=== PATIENT | female | born 1995 | race Caucasian/White ===

== ENCOUNTER 2021-10-11 13:19 | Outpatient (CLI) | payer OTHER, SELFPAY ==
--- NOTE | ~2021-10-11 | US_ITS ---
EXAMINATION: US OB transvaginal DATE: 10/11/2021 13:49 INDICATION: Spotting. Cramping. TECHNIQUE: Real-time transabdominal and transvaginal obstetric ultrasound. FINDINGS: No prior studies for comparison. The uterus measures 8.6 x 5.4 x 6 cm. There is an intrauterine gestational sac with a yolk sac. No de finite pole is or heart motions detected. Gestational sac measures 1.73 cm corresponding to 6 week 0 day gestation. No subchorionic hemorrhage. Ovaries are not visualized. No adnexal masses or fluid collections. IMPRESSION: 1. Intrauterine gestational sac with yolk sac. No pole identified, likely due to early gestatio nal age. Gestational sac size corresponds to 6 week 0 day gestation, SONIA 06/06/2022. Common follow-up with serial quantitative beta-hCG level and ultrasound as clinically indicated. Reviewed, dictated and finalized at location A. TAL MARKETING ANALYST IMPRESSION: 1. Intrauterine gestational sac with yolk sac. No pole identified, likely due to early gestational age. Gestational sac size corresponds to 6 week 0 day gestation, SONIA 06/06/2022. Common follow-up with serial quantitative beta-hCG level and ultrasound as clinically indicated.
== END 2021-10-11 13:20 ==
PROVIDERS: Visit Provider Obstetrics & Gynecology Gynecology
DX: O26.851 Spotting complicating pregnancy, first trimester (principal); Z3A.01 Less than 8 weeks gestation of pregnancy
CPT/HCPCS: 76817

== ENCOUNTER 2022-07-24 14:39 | Outpatient (CLI) | payer OTHER, SELFPAY ==
--- NOTE | ~2022-07-24 | US_ITS ---
Pelvic ultrasound. Clinical History: First trimester , evaluate for dates Technique: Realtime transabdominal scanning of the pelvis was performed. Findings: The uterus is anteverted, and contains an intrauterine gestation. Haskell-rump length of 1.8 cm corresponds to an estimated gestational age of 8 weeks 2 days. heart rate is 168 bpm. Neither ovary is seen. No adnexal mass seen. There is no evidence of free fluid in the cul de sac. Impression: Live intrauterine gestation with estimated gestational age of 8 weeks 2 days. heart rate is 168 bpm. Reviewed, dictated and finalized at location . [employer] CRM DEVELOPER Impression: Live intrauterine gestation with estimated gestational age of 8 weeks 2 days. F etal heart rate is 168 bpm.
== END 2022-07-24 14:40 ==
LOC: MICIMG 14:41
PROVIDERS: PCP Family Medicine; Visit Provider Obstetrics & Gynecology Gynecology
DX: Z36.87 Encounter for antenatal screening for uncertain dates (principal); Z3A.08 8 weeks gestation of pregnancy
CPT/HCPCS: 76801

== ENCOUNTER 2022-12-20 07:29 | Outpatient (CLI) | payer OTHER, SELFPAY ==
[2022-12-20 08:47] LABS: Hematocrit 31.1 % (35.0-49.0); Hemoglobin 10.2 g/dL (12.0-15.0)
[2022-12-20 09:38] LABS: HIV 1 P24 AG Negative (Negative); HIV 1/2 AB Negative (Negative)
[2022-12-20 09:48] LABS: Free T4 Free Thyroxine 0.75 ng/dL (0.76-1.46); Thyroid Stimulating Hormone 1.31 uIU/mL (0.36-3.74)
[2022-12-20 09:53] LABS: Glucose 1 Hour PP 50gm Dose 154 mg/dL (70-130)
[2022-12-25 17:31] LABS: Vitamin D 25 Hydroxy 26 ng/mL (30-100)
== END 2022-12-20 07:30 | disposition home or self-care (01) ==
PROVIDERS: PCP Family Medicine; Visit Provider Obstetrics & Gynecology Gynecology
DX: Z34.93 Encounter for supervision of normal pregnancy, unspecified, third trimester (principal)
CPT/HCPCS: 36415; 82306; 82947; 84439; 84443; 85014; 85018; 86703

== ENCOUNTER 2022-12-27 09:02 | Outpatient (CLI) | payer OTHER, SELFPAY ==
[2022-12-27 09:50] LABS: Glucose Fasting 87 mg/dL (70-99)
[2022-12-27 10:47] LABS: Glucose 1 Hour 145 mg/dL (<180)
[2022-12-27 11:25] LABS: Glucose 2 Hour 144 mg/dL (<155)
[2022-12-27 12:25] LABS: Glucose 3 Hour 94 mg/dL (<140)
[2022-12-31 10:49] LABS: Glucose Fasting Gestational 87 mg/dL (>/=95)
[2022-12-31 10:50] LABS: Glucose 1 Hour Gest 145 mg/dL (70-130)
[2022-12-31 10:50] LABS: Glucose 2 Hour Gest 144 mg/dL (<155)
[2022-12-31 10:52] LABS: Glucose 3 Hour Gest 94 mg/dL (>/=140)
== END 2022-12-27 09:03 | disposition home or self-care (01) ==
PROVIDERS: PCP Family Medicine; Visit Provider Obstetrics & Gynecology Gynecology
DX: Z34.93 Encounter for supervision of normal pregnancy, unspecified, third trimester (principal)
CPT/HCPCS: 36415; 82951; 82952

== ENCOUNTER 2023-01-18 16:41 | Observation (INO) | payer OTHER, SELFPAY ==
[2023-01-18] VITALS (9 sets, daily range): BP systolic 118–141; BP diastolic 72–94; PULSE 97–107; RESP 16; TEMP 36.8; BMI 36.3
--- NOTE | 2023-01-18 17:08 | PC.NURSE ---
Dr. Avilez returned page and informed of pt's arrival after falling this morning around 1100. informed pt was carrying a load of laundry down her stairs when the dog came up behind her and she fell on her back side and slide down about a half flight of steps. Baby is active with accels present. Informed pt does have some left sided abdominal soreness with palpation and c/o constant left lower back soreness that she rates as a 7 out of 10. No redness or bruising on back. Pt tried showering for discomfort, but has not taken any Tylenol. Denies vaginal bleeding. States she has had several instances of watery discharge since Thursday. Also continues to have an occasional lower abdominal pressure discomfort that she has had for the last 2 weeks that she rates as a 5 out of 10 when it happens. Initial BP's are 133/85 and 141/94. Pt c/o temporal headache she rates as a 3 out of 10, denies visual disturbance, no epigastric/RUQ pain. No edema and DTR's are 1+ and no clonus. Orders received for Tylenol, ice pack, perform ROM plus, and if BP's stay elevated perform HIP labs.
[2023-01-18] MEDS: ACETAMINOPHEN 500 MG TABLET 1000 MG PO (17:25)
--- NOTE | 2023-01-18 18:21 | OBADM ---
This patient, Suma Moreno, admitted to the OB room OB Post 116 for observation. Patient/family oriented to hospital policies and general routines including ID bracelet, bed and alarms, visiting hours, pain management, procedures, bathroom and other care routines, personal items, smoking policy, room service/diet, and visiting hours. Patient/Family are encouraged to report perceived risks to care and to ask questions if they do not understand what they are told or what they should do.
--- NOTE | 2023-01-23 12:43 | PM.OBTRLD ---
OB - Triage/Final Diagnosis Visit Information Reason for evaluation: other ( Status post fall down stairs) Comments/Additional reasons for admission: I have assessed the risk for this patient, Suma Moreno, and determined that she would benefit from observation care.
== END 2023-01-18 19:11 | disposition home or self-care (01) ==
PROVIDERS: Admitting Provider Obstetrics & Gynecology Gynecology; PCP Family Medicine; Visit Provider Obstetrics & Gynecology Gynecology
DX: Z04.3 Encounter for examination and observation following other accident (principal)
CPT/HCPCS: A9270; G0378; G0379

== ENCOUNTER 2023-01-28 18:36 | Observation (INO) | payer OTHER, SELFPAY ==
[2023-01-28] VITALS (40 sets, daily range): BP systolic 109–138; BP diastolic 68–109; PULSE 92–121; TEMP 36.6; O2SAT 96–100; BMI 35.9
[2023-01-28] MEDS: BETAMETHASONE SOD PHOS/ACETATE 30 MG/5 ML VIAL 12 MG IM (20:47)
[2023-01-28] MEDS: ACETAMINOPHEN 500 MG TABLET 1000 MG PO (20:48)
[2023-01-28] MEDS: fentaNYL CITRATE INJ (*CRX) 100 MCG/2 ML VIAL 50 MCG IV PUSH (21:53)
[2023-01-28 21:54] LABS: Appearance Urine Clear (Clear); Bacteria Urine None Seen /hpf; Bilirubin Urine Negative (Negative); Blood Urine Negative (Negative); Color Urine Yellow (Yellow); Glucose Urine UA Negative (Negative); Hyaline Casts Urine Present /lpf; Ketones Urine Negative (Negative); Leukocyte Esterase Ur 2+ LEU/UL (Negative); Nitrate Urine Negative (Negative); Protein Urine Negative (Negative); RBC Urine 0-2 /hpf (0-2); Specific Grav Ur 1.004 (1.001-1.035); Squamous Epithelial Cell Urine Few /hpf (Few); Urobilinogen Urine 0.2 mg/dL (<2.0); WBC Urine 0-5 /hpf
[2023-01-28 21:55] LABS: Add Urine Microscopic? YES
[2023-01-28 23:10] LABS: Basophils Absolute Auto 0.1 K/mm3 (0.0-0.1); Basophils Percent Auto 0.4 % (0.2-1.2); Eosinophils Absolute Auto 0.1 K/mm3 (0-0.3); Hemoglobin 10.1 g/dL (12.0-15.0); Immature Granulocyte Percent A 0.9 % (0-0.5); Lymphocytes Absolute Auto 1.82 K/mm3 (0.9-3.2); Lymphocytes Percent Auto 15.5 % (18.3-44.2); Mean Corpuscular HGB Conc 32.6 g/dl (32-36); Mean Corpuscular Hemoglobin 27.9 pg (26-34); Mean Corpuscular Volume 85.6 fl (80-100); Mean Platelet Volume 10.6 fl (7.4-10.4); Monocytes Absolute Auto 0.8 K/mm3 (0.1-0.6); Neutrophils Absolute Auto 8.8 K/mm3 (1.3-6.7); Neutrophils Percent Auto 75.2 % (45.5-73.1); Platelet Count Result 213 k/mm3 (150-375); Red Blood Count 3.62 M/mm3 (4.2-5.4); Red Cell Distribution Width 14.4 % (11.5-14.5); White Blood Count 11.7 K/mm3 (4.5-10.0)
[2023-01-28 23:22] LABS: Alanine Aminotransferase 19 U/L (6-35); Albumin Level 3.5 g/dL (3.5-5.1); Alkaline Phosphatase 176 U/L (38-126); Anion Gap 7 mmol/L (8-16); Aspartate Amino Transferase 24 U/L (14-36); Bilirubin,Total 0.5 mg/dL (0.2-1.3); Blood Urea Nitrogen 5 mg/dL (7-17); Calcium 8.5 mg/dL (8.4-10.2); Carbon Dioxide 21 mmol/L (22-30); Chloride 106 mmol/L (98-107); Estimated CRCL calculation 185 ml/min; Estimated Glomerular Filt Rate > 60; Glucose 101 mg/dL (65-110); Potassium 3.2 mmol/L (3.4-5.0); Sodium 134 mmol/L (137-145)
--- NOTE | 2023-01-28 23:31 | PM.OBTRLD ---
OB - Triage/Final Diagnosis Visit Information Date of evaluation: 01/28/23 Reason for evaluation: threatened labor (pelvic pressure) Comments/Additional reasons for admission: I have assessed the risk for this patient, Suma Moreno, and determined that she would benefit from observation care. Evaluation Baseline heart rate: 140 Variability: Moderate (11-25) monitor accelerations: Present monitor decelerations: Variable Cervical dilation (cm): 4 station: -3 Laboratory results: Laboratory Tests 01/28/23 01/28/23 20:44 23:04 WBC 11.7 H RBC 3.62 L Hgb 10.1 L Hct 31.0 L MCV 85.6 MCH 27.9 MCHC 32.6 RDW 14.4 Plt Count 213 MPV 10.6 H Immature Gran % (Auto) 0.9 H Neut % (Auto) 75.2 H Lymph % (Auto) 15.5 L [place] % (Auto) 7.0 Eos % (Auto) 1.0 Baso % (Auto) 0.4 Lymph # (Auto) 1.82 [place] # (Auto) 0.8 H Eos # (Auto) 0.1 Baso # (Auto) 0.1 Abs Immat Gran (auto) 0.10 H Absolute Neuts (auto) 8.8 H Absolute Nucleated RBC 0.0 Nucleated RBC % 0.0 Sodium 134 L Potassium 3.2 L Chloride 106 Carbon Dioxide 21 L Anion Gap 7 L BUN 5 L Creatinine 0.40 L Estim Creat Clear Calc 185 Estimated GFR > 60 Glucose 101 Calcium 8.5 Total Bilirubin 0.5 AST 24 ALT 19 Alkaline Phosphatase 176 H Total Protein 7.0 Albumin 3.5 Urine Color Yellow Urine Appearance Clear Urine pH 7.0 Ur Specific [place] 1.004 Urine Protein Negative Urine Glucose (UA) Negative Urine Ketones Negative Ur Blood (Man) Negative Urine Nitrate Negative Urine Bilirubin Negative Urine Urobilinogen 0.2 Leukocyte Esterase Rfl 2+ H Urine RBC 0-2 Urine WBC 0-5 Ur Squamous Epith Cells Few Urine Bacteria None seen Urine Casts 3-5 Hyaline Casts Present Vital signs: Vital Signs - 24 hr 01/28/23 19:34 01/28/23 19:39 01/28/23 19:44 Temperature Pulse Rate Blood Pressure Pulse Oximetry 96 97 97 01/28/23 19:49 01/28/23 19:54 01/28/23 19:59 Temperature Pulse Rate Blood Pressure Pulse Oximetry 100 96 97 01/28/23 20:04 01/28/23 20:09 01/28/23 20:14 Temperature Pulse Rate Blood Pressure Pulse Oximetry 100 99 100 01/28/23 20:19 01/28/23 20:24 01/28/23 20:29 Temperature Pulse Rate Blood Pressure Pulse Oximetry 99 98 99 01/28/23 20:53 01/28/23 21:01 01/28/23 21:31 Temperature Pulse Rate 114 H 113 H 109 H Blood Pressure 122/68 120/70 123/109 H Pulse Oximetry 01/28/23 21:54 01/28/23 21:57 01/28/23 21:58 Temperature Pulse Rate 114 H Blood Pressure 134/93 H Pulse Oximetry 99 98 01/28/23 21:59 01/28/23 22:00 01/28/23 22:00 Temperature Pulse Rate Blood Pressure Pulse Oximetry 98 98 100 01/28/23 22:01 01/28/23 22:08 01/28/23 22:13 Temperature Pulse Rate 112 H Blood Pressure 138/98 H Pulse Oximetry 99 99 01/28/23 22:18 01/28/23 22:23 01/28/23 22:28 Temperature Pulse Rate Blood Pressure Pulse Oximetry 99 99 100 01/28/23 22:31 01/28/23 22:33 01/28/23 22:38 Temperature Pulse Rate 105 H Blood Pressure 119/77 Pulse Oximetry 98 96 01/28/23 22:43 01/28/23 22:48 01/28/23 22:53 Temperature Pulse Rate Blood Pressure Pulse Oximetry 100 100 96 01/28/23 22:58 01/28/23 23:01 01/28/23 23:03 Temperature Pulse Rate 96 Blood Pressure 109/87 Pulse Oximetry 99 99 01/28/23 23:08 01/28/23 23:13 01/28/23 23:18 Temperature Pulse Rate Blood Pressure Pulse Oximetry 99 99 96 01/28/23 19:40 Temperature 97.9 F Pulse Rate Blood Pressure Pulse Oximetry Comments: S:CNM called to evaluate pt. Pt s/p fall over the weekend. Reactive NST in the office afterwards. She presented to labor and delivery this evening with increased pressure. leaking fluid, and occasional contractions. After admission, she c/o sharp, constant lower abdominal/vaginal pain. CNM to bedsid
[2023-01-28] MEDS: POTASSIUM CHLORIDE 20 MEQ PACKET (FOR LIQUID) 40 MEQ PO (23:56)
[2023-01-29 00:42] VITALS: PULSE 95; O2SAT 97
[2023-01-29 00:50] LABS: Influenza A QL RT-PCR Negative (Negative); Influenza B QL RT-PCR Negative (Negative); RSV RNA, RT-PCR Negative (Negative); SARS-CoV-2 RNA PCR Negative (Negative)
[2023-01-29] MEDS: CYCLOBENZAPRINE HCL 10 MG TABLET PO (00:54)
== END 2023-01-29 01:00 | disposition home or self-care (01) ==
PROVIDERS: Admitting Provider Obstetrics & Gynecology Gynecology; PCP Family Medicine; Visit Provider Advanced Practice Midwife
DX: O47.03 False labor before 37 completed weeks of gestation, third trimester (principal); O98.813 Other maternal infectious and parasitic diseases complicating pregnancy, third trimester; B95.1 Streptococcus, group B, as the cause of diseases classified elsewhere; O99.283 Endocrine, nutritional and metabolic diseases complicating pregnancy, third trimester; E87.6 Hypokalemia; O99.513 Diseases of the respiratory system complicating pregnancy, third trimester; R05.9 Cough, unspecified; Z3A.35 35 weeks gestation of pregnancy
CPT/HCPCS: 36415; 59025; 80053; 81001; 84112; 85025; 87081; 87637; 96372; 96374; A9270; G0378; G0379; J0702; J3010

== ENCOUNTER 2023-01-29 12:41 | Outpatient (CLI) | payer OTHER, SELFPAY ==
[2023-01-29] MEDS: BETAMETHASONE SOD PHOS/ACETATE 30 MG/5 ML VIAL 12 MG IM (13:02)
== END 2023-01-29 12:42 | disposition home or self-care (01) ==
LOC: ANHOBOP 12:54
PROVIDERS: PCP Family Medicine; Visit Provider Obstetrics & Gynecology Gynecology
DX: Z34.90 Encounter for supervision of normal pregnancy, unspecified, unspecified trimester (principal); Z3A.00 Weeks of gestation of pregnancy not specified
CPT/HCPCS: 96372; J0702

== ENCOUNTER 2023-01-30 14:28 | Outpatient (RCR) | payer OTHER, SELFPAY ==
[2023-01-23 18:23] VITALS: BP 154/77; PULSE 111
[2023-01-23 18:31] VITALS: BP 129/76; PULSE 104
[2023-01-23 18:44] VITALS: BP 129/76; PULSE 104
[2023-01-27 20:24] VITALS: BP 138/82; PULSE 104
[2023-01-30 15:48] VITALS: BP 134/77; PULSE 110
== END 2023-03-23 12:44 | disposition home or self-care (01) ==
LOC: ANHOBOP 14:28
PROVIDERS: PCP Family Medicine; Visit Provider Obstetrics & Gynecology Gynecology
DX: O36.8130 Decreased fetal movements, third trimester, not applicable or unspecified (principal); Z3A.34 34 weeks gestation of pregnancy
CPT/HCPCS: 59025

== ENCOUNTER 2023-02-01 19:53 | Observation (INO) | payer OTHER, SELFPAY ==
[2023-02-01] VITALS (8 sets, daily range): BP systolic 130–145; BP diastolic 78–123; PULSE 90–109; RESP 16; TEMP 37; BMI 35.5
--- NOTE | 2023-02-01 19:53 | OBADM ---
This patient, Suma Moreno, admitted to the OB room Labor/Delivery/Recovery 103 for observation. Patient/family oriented to hospital policies and general routines including ID bracelet, bed and alarms, visiting hours, pain management, procedures, bathroom and other care routines, personal items, smoking policy, room service/diet, and visiting hours. Patient/Family are encouraged to report perceived risks to care and to ask questions if they do not understand what they are told or what they should do.
--- NOTE | 2023-02-01 22:40 | PC.NURSE ---
Discharge instructions reviewed with patient, labor precautions reviewed with patient. Patient instructed to use support belt for comfort. Patient instructed to follow-up with Dr. Avilez as scheduled. Patient instructed to do kick counts and educated on how to properly do them. Patient states understanding of discharge instructions and denies questions.
--- NOTE | 2023-02-09 09:55 | PM.OBTRLD ---
OB - Triage/Final Diagnosis Visit Information Reason for evaluation: other ( pelvic pressure) Comments/Additional reasons for admission: I have assessed the risk for this patient, Suma Moreno, and determined that she would benefit from observation care.
--- NOTE | 2023-02-09 10:24 | PM.OBPNVD ---
OB - PN: Subj Subjective Date/time seen: 02/09/23 10:24 Interval history: Called by RN as patient stating she cannot stay for antibiotics due to no childcare. Discussed that she would need to sign out AMA as she has a life threatening illness. Discussed risks of worsening infection including sepsis and if patient leaves without standard medication treatment. OB - PN A/P Assessment and Plan (1) Endometritis: Code(s): N71.9 - Inflammatory disease of uterus, unspecified Status: Acute Assessment and Plan: Care coordination called to see if can set up outpatient antibiotics. Will call back once investigates. Plan Plan day: 4 Time Spent With Patient Time: Total time spent is greater than 50% in coordination of care (as documented) at patient's floor/unit and/or counseling patient:
== END 2023-02-01 22:40 | disposition home or self-care (01) ==
PROVIDERS: Admitting Provider Obstetrics & Gynecology; PCP Family Medicine; Visit Provider Obstetrics & Gynecology Gynecology
DX: O86.12 Endometritis following delivery (principal); Z53.21 Procedure and treatment not carried out due to patient leaving prior to being seen by health care provider
CPT/HCPCS: G0378; G0379

== ENCOUNTER 2023-02-03 13:50 | Inpatient (IN) | payer OTHER, SELFPAY ==
[2023-02-03] VITALS (18 sets, daily range): BP systolic 111–137; BP diastolic 74–95; PULSE 88–107; RESP 16; TEMP 36.6; O2SAT 97–99; BMI 36.5
--- NOTE | ~2023-02-03 | US_ITS ---
EXAMINATION: US OB follow up DATE: 02/03/2023 13:21 INDICATION: Estimated weight and growth assessment during third trimester TECHNIQUE: Real-time ultrasound of the pelvis was performed. The interpreting radiologist was not pre sent for the study. COMPARISON: None. FINDINGS: There is a single living fetus in vertex presentation. The placenta is fundal. cardia c activity and movement are noted. heart rate is 157 beats per minute (bpm). The amniotic fluid index is 12.2 cm which is normal (normal range: 7.7 cm to 24.9 cm). The following biometric data were obtained: Biparietal diameter (BPD): 9.6 cm; head circumference (HC): 32.9 cm; abdominal circumference (AC): 35 .0 cm; femur length (FL): 7.4 cm. These measurements are concordant. Estimated weight is 3557 g +/- 533 g, which correlates with the >97th percentile when 03/03/2023 is used as estimated date of delivery. As single measurements, these parameters are each equal to the following estimated gestational ages w ith ranges of +/- 2 standard deviations: BPD: 39 weeks 2 days +/- 3 weeks 1 days. HC: 37 weeks 4 days +/- 2 weeks 5 days. AC: 39 weeks 0 days +/- 3 weeks 0 days. FL: 38 weeks 0 days +/- 3 weeks 1 days. estimated gestational age based solely on measurements from this exam is 38 weeks 3 days +/- 2 weeks 5 days. IMPRESSION: 1. Single living fetus in vertex presentation. 2. Normal amniotic fluid index. 3. Estimated weight is 3557 g +/- 533 g, which correlates with the >97th percentile when 023 is used as estimated date of delivery. Reviewed, dictated and finalized at location L. IMPRESSION: 1. Single living fetus in vertex presentation. 2. Normal amniotic fluid index. 3. Estimated weight is 3557 g +/- 533 g, which correlates with the >97th percentile when 03/03/2023 is used as estimated date of delivery.
[2023-02-03 10:57] LABS: Basophils Absolute Auto 0.1 K/mm3 (0.0-0.1); Basophils Percent Auto 0.4 % (0.2-1.2); Eosinophils Absolute Auto 0.2 K/mm3 (0-0.3); Eosinophils Percent Auto 1.2 % (0-4.4); Hematocrit 32.4 % (37.0-47.0); Hemoglobin 10.4 g/dL (12.0-15.0); Immature Granulocyte Absolute 0.22 K/mm3 (0.00-0.031); Immature Granulocyte Percent A 1.6 % (0-0.5); Lymphocytes Absolute Auto 2.57 K/mm3 (0.9-3.2); Lymphocytes Percent Auto 18.2 % (18.3-44.2); Mean Corpuscular HGB Conc 32.1 g/dl (32-36); Mean Corpuscular Hemoglobin 27.1 pg (26-34); Mean Corpuscular Volume 84.4 fl (80-100); Monocytes Absolute Auto 0.9 K/mm3 (0.1-0.6); Monocytes Percent Auto 6.7 % (2.6-8.5); Neutrophils Absolute Auto 10.1 K/mm3 (1.3-6.7); Neutrophils Percent Auto 71.9 % (45.5-73.1); Platelet Count Result 245 k/mm3 (150-375); Red Blood Count 3.84 M/mm3 (4.2-5.4); Red Cell Distribution Width 14.3 % (11.5-14.5); White Blood Count 14.1 K/mm3 (4.5-10.0)
[2023-02-03] MEDS: ACETAMINOPHEN 500 MG TABLET 1000 MG PO (11:07)
[2023-02-03 11:13] LABS: Alanine Aminotransferase 18 U/L (6-35); Albumin Level 3.4 g/dL (3.5-5.1); Alkaline Phosphatase 184 U/L (38-126); Anion Gap 5 mmol/L (8-16); Aspartate Amino Transferase 19 U/L (14-36); Bilirubin,Total 0.3 mg/dL (0.2-1.3); Blood Urea Nitrogen 7 mg/dL (7-17); Calcium 8.3 mg/dL (8.4-10.2); Carbon Dioxide 24 mmol/L (22-30); Chloride 106 mmol/L (98-107); Estimated Glomerular Filt Rate > 60; Glucose 82 mg/dL (65-110); Potassium 3.6 mmol/L (3.4-5.0); Sodium 135 mmol/L (137-145)
--- NOTE | 2023-02-03 12:00 | PC.NURSE ---
No improvement in headache after Tylenol. Still has flashes/spots in vision also.
[2023-02-03 12:07] LABS: Appearance Urine Clear (Clear); Bacteria Urine None Seen /hpf; Bilirubin Urine Negative (Negative); Blood Urine Negative (Negative); Color Urine Yellow (Yellow); Glucose Urine UA Negative (Negative); Ketones Urine Negative (Negative); Leukocyte Esterase Ur 2+ LEU/UL (Negative); Nitrate Urine Negative (Negative); Non Pathogenic Casts 0-2; Protein Urine Negative (Negative); RBC Urine 0-2 /hpf (0-2); Specific Grav Ur 1.011 (1.001-1.035); Squamous Epithelial Cell Urine Few /hpf (Few); Urobilinogen Urine 0.2 mg/dL (<2.0); pH Urine 7.5 (5.0-9.0)
[2023-02-03 12:11] LABS: Add Urine Microscopic? YES
--- NOTE | 2023-02-03 12:55 | PC.NURSE ---
Pt voided and then to U/S.
[2023-02-03 13:34] LABS: Creatinine Urine 68.4 mg/dL; Total Protein Urine Random 15 mg/dL; Ur Ttl Prot Creatinine Ratio 0.22 mg/mg (0-0.20)
--- NOTE | 2023-02-03 13:40 | PC.NURSE ---
Román ISBELLM informed of BP's, labs, reactive NST, and U/S report. AKILAHM will call back after speaking with Dr. Avilez.
--- NOTE | 2023-02-03 13:50 | PC.NURSE ---
Román ISBELL called back with orders to place pt as observation to complete a 24 hr urine while in the hospital. Additional orders for stay received.
--- NOTE | 2023-02-03 14:30 | PC.NURSE ---
Román Larson [facility] informed pt refusing offer for Compazine and Benadryl. Order received to offer Magnesium Sulfate 1 gm IVPB over 30 mins for her headache as it is a natural element. To explain to pt that they want to differentiate if she has a headache with visual disturbance that doesn't go away with meds as part of the criteria for diagnosing preeclampsia and indication for delivery.
--- NOTE | 2023-02-03 14:40 | PC.NURSE ---
Explained the offer of Magnesium sulfate to pt and she still declines. 24 hr urine in progress and on ice.
--- NOTE | 2023-02-03 18:14 | PC.NURSE ---
Pt called out stating she was sitting on the side of the bed when she suddenly became nauseated and dizzy. States her headache worsened to a 6 out of 10 and is in her temples more. Blood sugar was normal. Ice pack given.
[2023-02-03 18:18] LABS: Glucose Point of Care 85 mg/dl (65-105)
[2023-02-04] VITALS (105 sets, daily range): BP systolic 72–147; BP diastolic 36–96; PULSE 75–161; RESP 16; TEMP 36.1–36.6; O2SAT 95–100; BMI 35.2
--- NOTE | 2023-02-04 06:22 | PM.OBPNVD ---
OB - PN: Subj Subjective Date/time seen: 02/04/23 06:22 Patient comments: other Narrative: CNM to bedside. Pt looking at her phone screen. Pt states her night was horrible . She can't get comfortable. States she is still having flashes of light in her vision but they are not as bad . Rates headache a 11/17. OB - PN: Obj Data Labs 02/03/23 10:48 02/03/23 10:48 Labs: Laboratory Results - last 24 hr 02/03/23 02/03/23 02/03/23 10:48 11:47 18:14 WBC 14.1 H RBC 3.84 L Hgb 10.4 L Hct 32.4 L MCV 84.4 MCH 27.1 MCHC 32.1 RDW 14.3 Plt Count 245 MPV 10.0 Immature Gran % (Auto) 1.6 H Neut % (Auto) 71.9 Lymph % (Auto) 18.2 L [place] % (Auto) 6.7 Eos % (Auto) 1.2 Baso % (Auto) 0.4 Lymph # (Auto) 2.57 [place] # (Auto) 0.9 H Eos # (Auto) 0.2 Baso # (Auto) 0.1 Abs Immat Gran (auto) 0.22 H Absolute Neuts (auto) 10.1 H Absolute Nucleated RBC 0.0 Nucleated RBC % 0.0 Sodium 135 L Potassium 3.6 Chloride 106 Carbon Dioxide 24 Anion Gap 5 L BUN 7 Creatinine 0.50 L Estim Creat Clear Calc Not Reportable Estimated GFR > 60 Glucose 82 POC Capillary Glucose 85 Uric Acid 4.0 Calcium 8.3 L Total Bilirubin 0.3 AST 19 ALT 18 Alkaline Phosphatase 184 H Total Protein 7.0 Albumin 3.4 L Urine Color Yellow Urine Appearance Clear Urine pH 7.5 Ur Specific [place] 1.011 Urine Protein Negative Urine Glucose (UA) Negative Urine Ketones Negative Ur Blood (Man) Negative Urine Nitrate Negative Urine Bilirubin Negative Urine Urobilinogen 0.2 Leukocyte Esterase Rfl 2+ H Urine RBC 0-2 Urine WBC 6-10 H Ur Squamous Epith Cells Few Urine Bacteria None seen Urine Casts 0-2 U Random Total Protein 15 Urine Creatinine 68.4 Protein/Creat Ratio 2 0.22 H Imaging Radiologist's impression: Impressions Obstetrics Ultrasound 02/03/23 13:29 IMPRESSION: 1. Single living fetus in vertex presentation. 2. Normal amniotic fluid index. 3. Estimated weight is 3557 g +/- 533 g, which correlates with the >97th percentile when 03/03/2023 is used as estimated date of delivery. OB - PN A/P Assessment and Plan (1) Headache: Code(s): R51.9 - Headache, unspecified Status: Acute (2) Visual disturbances: Code(s): H53.9 - Unspecified visual disturbance Status: Acute Plan 1. Elevated BP in office 02/03/23. - all BPs in hospital WNL. Labs WNL. Awaiting completion of 24 hour urine protein. No evidence of preeclampsia at this time. 2. Headache - refusing all PO medications. Discussed IV magnesium 1 gram- refuses. Somewhat consistent with her migraine history 3. wellbeing reassuring -nST reactive. -s/p [place] - no evidence of labor Time Spent With Patient Time: Total time spent is greater than 50% in coordination of care (as documented) at patient's floor/unit and/or counseling patient: Review of Systems Review of Systems: All systems reviewed & are unremarkable except as noted in HPI and below Exam Const: General: no acute distress Nutritional Appearance: average body habitus Orientation/consciousness: oriented to person Limitations: no limitations HENMT: Head: normal to inspection Eyes: General: appearance normal, both eyes and all related structures Chest: Chest palpation & inspection: normal inspection of the chest Resp: Effort & Inspection: normal respiratory effort and able to speak in complete sentences Cardio: Rate: regular rate GI: Inspection: normal to inspection Skin: General skin exam: normal color Neuro: General: patient oriented x3 Cognition (Neuro): normal cognition Speech: normal speech Extrem: General: normal to inspection Psych: Appearance: grossly normal Affect: Other affect and mood findings present (agitated)
--- NOTE | 2023-02-04 06:45 | LDADM ---
This patient, Suma Moreno, was admitted to OB Post 115 on 02/03/23 at 13:50. Plans for labor, pain management and were discussed with patient. Patient/family oriented to hospital policies and general routines including ID bracelet, bed and alarms, visiting hours, pain management, procedures, bathroom and other care routines, personal items, smoking policy, room service/diet and guest tray routines, infant security routines, and visiting hours. Patient/Family are encouraged to report perceived risks to care and to ask questions if they do not understand what they are told or what they should do. See OBIX for further documentation.
--- NOTE | 2023-02-04 09:09 | PC.NURSE ---
RN at bedside for vitals. Patient watching TV and talking with her visitor. Patient has no complaints at this time.
--- NOTE | 2023-02-04 13:05 | PC.NURSE ---
24 hour urine specimen sent to lab. Awaiting results to notify provider.
[2023-02-04 13:23] LABS: Collection Time Urine 24 HOURS
[2023-02-04 14:52] LABS: Patient Weight 209 Lbs; Specific Gravity Ur 1.015; Total Volume 24 Hour Urine 3200 ml
[2023-02-04 15:01] LABS: Creatinine Clearance Urine 179.3 ml/min (75-125); Creatinine Urine 45.8 mg/dL; Total Protein Urine Random 20 mg/dL
[2023-02-04 15:11] LABS: Total Protein Urine 24 Hr 640 mg/24hr (28-141)
--- NOTE | 2023-02-04 16:58 | PC.NURSE ---
Spoke with CNM on phone. Patient is to be induced per provider. CNM to call back with induction orders.
--- NOTE | 2023-02-04 18:05 | PM.OBPNLAB ---
Pain Control Date/time seen: 02/04/23 [id number] Comments: . Assessment and Plan Comments: CNM to unit. RNs report pt walking in halls trying to induce labor this afternoon. CNM to antepartum room. Discussed 24 hour urine results with pt and diagnosis of preeclmapsia with severe features. Pt reports ARREDONDO is still present and occasionally still having flashes of light. Discussed IOL procedure and possible interventions. Pt desires to attempt unmedicated . Discussed normal BP elevation in response to pain and potential benefit of epidural analgesia. Discussed IOL at 36 weeks 1 day and potential risk of baby requiring transfer to higher level of care. Plan to move pt to labor room, start IV and then perform SVE. Plan of care reviewed with Dr. Avilez.
[2023-02-04 18:11] LABS: Basophils Percent Auto 0.3 % (0.2-1.2); Eosinophils Absolute Auto 0.2 K/mm3 (0-0.3); Eosinophils Percent Auto 1.2 % (0-4.4); Hemoglobin 10.3 g/dL (12.0-15.0); Immature Granulocyte Absolute 0.22 K/mm3 (0.00-0.031); Immature Granulocyte Percent A 1.7 % (0-0.5); Lymphocytes Absolute Auto 2.63 K/mm3 (0.9-3.2); Lymphocytes Percent Auto 20.5 % (18.3-44.2); Mean Corpuscular HGB Conc 32.2 g/dl (32-36); Mean Corpuscular Hemoglobin 27.4 pg (26-34); Mean Corpuscular Volume 85.1 fl (80-100); Mean Platelet Volume 10.1 fl (7.4-10.4); Monocytes Absolute Auto 0.8 K/mm3 (0.1-0.6); Monocytes Percent Auto 6.5 % (2.6-8.5); Neutrophils Percent Auto 69.8 % (45.5-73.1); Platelet Count Result 247 k/mm3 (150-375); Red Blood Count 3.76 M/mm3 (4.2-5.4); Red Cell Distribution Width 14.3 % (11.5-14.5); White Blood Count 12.9 K/mm3 (4.5-10.0)
[2023-02-04 18:21] LABS: Alanine Aminotransferase 17 U/L (6-35); Albumin Level 3.5 g/dL (3.5-5.1); Alkaline Phosphatase 178 U/L (38-126); Anion Gap 6 mmol/L (8-16); Aspartate Amino Transferase 19 U/L (14-36); Bilirubin,Total 0.2 mg/dL (0.2-1.3); Blood Urea Nitrogen 8 mg/dL (7-17); Calcium 8.6 mg/dL (8.4-10.2); Carbon Dioxide 19 mmol/L (22-30); Chloride 110 mmol/L (98-107); Estimated CRCL calculation 188 ml/min; Estimated Glomerular Filt Rate > 60; Glucose 96 mg/dL (65-110); Potassium 3.8 mmol/L (3.4-5.0); Sodium 135 mmol/L (137-145)
--- NOTE | 2023-02-04 18:29 | PM.OBPNLAB ---
Pain Control Date/time seen: 02/04/23 18:25 Pelvic Exam Dilation (cm): 4 (4.5) Effacement (%): 50 station: -4 Amniotic membrane status: Intact Comments: head applied to cervix. Contractions Monitor mode: External Contraction pattern: Absent Contraction phase: Resting Status status: Category l Assessment and Plan Assessment: other (begin IOL) Comments: CNM to bedside. Discussed plan of care an option for amniotomy. Discussed risks, benefits, and expectations of breaking water. Attempted amniotomy but was unsuccessful. Limited bedside US performed to verify position. Vertex presentation verified with spine towards maternal right side. Plan pitocin induction. Dr. Avilez updated. Lungs CTA, Reflexes 2+, neg clonus.
[2023-02-04] MEDS: MAGNESIUM SULF 4 GM/WATER100ML 4 GM/100 ML BAG IVPB (18:41)
[2023-02-04] MEDS: LACTATED RINGERS 1,000 ML 75 ML IV CONT (18:41)
[2023-02-04] MEDS: OXYTOCIN 30 UNITS/NS 500 ML 30 UNITS/500 ML BAG IV CONT (18:43)
[2023-02-04] MEDS: MAGNESIUM SULF 20GM/WATER500ML 500 ML 50 MG IV CONT (19:17)
--- NOTE | 2023-02-04 21:59 | WPDANESEPP ---
Anes - Eval Pre Procedure Procedure: labor epidural Date/Time: 02/04/23 21:59 Surgeon: khanh Preop Diagnosis: pain during labor Pre Op Diagnosis: PRE E Labs Patient Data Age: 27 Gender: F Height: 1.6 m Weight: 90.1 kg Last Vital Signs Temp 36.2 C L 02/04/23 21:10 Pulse 121 H 02/04/23 21:46 Resp 16 02/04/23 19:17 BP 145/82 H 02/04/23 21:46 Pulse Ox 100 02/04/23 21:58 O2 Del Method Room Air 02/04/23 19:18 Allergies Allergy/AdvReac Type Severity Reaction Status Date / Time No Known Allergies Allergy Mild Verified 02/03/23 10:42 Home Medications Medication Instructions Recorded Confirmed Type ergocalciferol (vitamin D2) 1,250 50,000 unit PO 2XW 01/18/23 02/03/23 History mcg (50,000 unit) capsule ferrous sulfate 325 mg (65 mg 325 mg PO DAILY 01/18/23 02/03/23 History iron) tablet levothyroxine 25 mcg tablet 25 mcg PO DAILY 01/18/23 02/03/23 History vit no.95-ferrous 1 tablet PO DAILY 01/18/23 02/03/23 History fumarate 28 mg-folic acid 800 mcg tablet () Laboratory Tests 02/03/23 02/04/23 12:58 18:05 WBC 12.9 H K/mm3 (4.5-10.0) RBC 3.76 L M/mm3 (4.2-5.4) Hgb 10.3 L g/dL (12.0-15.0) Hct 32.0 L % (37.0-47.0) MCV 85.1 fl (80-100) MCH 27.4 pg (26-34) MCHC 32.2 g/dl (32-36) RDW 14.3 % (11.5-14.5) Plt Count 247 k/mm3 (150-375) MPV 10.1 fl (7.4-10.4) Immature Gran % (Auto) 1.7 H % (0-0.5) Neut % (Auto) 69.8 % (45.5-73.1) Lymph % (Auto) 20.5 % (18.3-44.2) [place] % (Auto) 6.5 % (2.6-8.5) Eos % (Auto) 1.2 % (0-4.4) Baso % (Auto) 0.3 % (0.2-1.2) Lymph # (Auto) 2.63 K/mm3 (0.9-3.2) [place] # (Auto) 0.8 H K/mm3 (0.1-0.6) Eos # (Auto) 0.2 K/mm3 (0-0.3) Baso # (Auto) 0.0 K/mm3 (0.0-0.1) Abs Immat Gran (auto) 0.22 H K/mm3 (0.00-0.031) Absolute Neuts (auto) 9.0 H K/mm3 (1.3-6.7) Absolute Nucleated RBC 0.0 K/mm3 (0.0-0.012) Nucleated RBC % 0.0 % (0.0-0.2) Sodium 135 L mmol/L (137-145) Potassium 3.8 mmol/L (3.4-5.0) Chloride 110 H mmol/L (98-107) Carbon Dioxide 19 L mmol/L (22-30) Anion Gap 6 L mmol/L (8-16) BUN 8 mg/dL (7-17) Creatinine 0.40 L mg/dL (0.7-1.0) Estim Creat Clear Calc 188 ml/min Estimated GFR > 60 (59 - ) Glucose 96 mg/dL (65-110) Calcium 8.6 mg/dL (8.4-10.2) Total Bilirubin 0.2 mg/dL (0.2-1.3) AST 19 U/L (14-36) ALT 17 U/L (6-35) Alkaline Phosphatase 178 H U/L (38-126) Total Protein 7.0 g/dL (6.3-8.2) Albumin 3.5 g/dL (3.5-5.1) U Random Total Protein 20 mg/dL Ur 24 Hour Volume 3200 ml Urine Creatinine 45.8 mg/dL Creatinine Clearance 179.3 H ml/min (75-125) U Protein 24 Hr Presump Cancelled Ur Total Protein 24 Hr 640 H mg/24hr (28-141) RPR Pending Blood Type O Positive Antibody Screen Negative Patient hx anesthesia problems: none Family hx anesthesia problems: none Results Review: All pre-operative results and documents have been reviewed as part of the pre-operative evaluation. [facility] Past Medical History Medical History Healthy adult Family History Family History (Updated 02/03/23 @ 10:44 by Susi Aj RN) Grandparent Family history of heart disease in male family member before age 55 Cerebrovascular accident Heart attack Father Heart attack History of renal stent Social History Social History Smoking status: Never smoker Second hand tobacco smoke exposure: No Alcohol intake: never Substance use: never Spiritual care concerns: No Exam Day of Procedu
[2023-02-05] VITALS (77 sets, daily range): BP systolic 106–140; BP diastolic 47–118; PULSE 86–145; RESP 16–18; TEMP 36.4–37.1; O2SAT 97–100
[2023-02-05] MEDS: CALCIUM CARBONATE (TUMS) 500 MG (200 MG ELEMENTAL) (01:23)
[2023-02-05] MEDS: miSOPROStol 200 MCG TABLET 800 MCG (03:20)
--- NOTE | 2023-02-05 03:32 | PM.OBPRVD ---
OB - Delivery Note Procedure Delivery date: 02/05/23 Procedure: Events: Preeclampsia w severe features Induction method: Per Pitocin Protocol Delivery monitor: External FHT and External Uterine Route of delivery: Episiotomy description: None Laceration Description: Labial (bilateral 1st degree, hemostatic. No repair needed) Specimen: Yes (placenta) Quantitative Blood Loss (ml): 200 Anesthesia type: Epidural Disposition: Floor Narrative: Pt Admitted for induction secondary to preeclampsia with severe features (severe feature visual disturbance). she was given an epidural for analgesia and progressed to complete dilation. She pushed a few times and quickly brought the head to . A loose nuchal cord was identified. She delivered over intact perineum and there is easy delivery of the anterior followed by the posterior shoulder. The remainder of the was delivered to the nuchal cord was reduced. The infant was placed on the maternal abdomen and care was transitioned to the pediatric team. After 1 minute of life, the cord was doubly clamped and cut. Cord gases, cord blood, and cord segment were obtained. The placenta delivered spontaneously and was found to be intact. There was excellent hemostasis. All delivery counts correct. 800 mcg Cytotec placed rectally due to history of hemorrhage and current magnesium sulfate infusion. infant skin to skin in the delivery room. Baby Date of : 02/05/23 Time of : 03:11 Weeks of gestation at delivery: 36 (36 weeks 2 days) Infant gender: Male Weight (pounds): 0 (weight unavailable at the time of this note as skin to skin with mother) presentation: vertex position: Right Occiput Anterior Placenta delivery description: Spontaneous Cord Vessel Description: 3 Vessels, Nuchal Cord (loose x 1), Clamped/Cut and Delayed Cord Clamping score one minute: 8 score five minutes: 9
--- NOTE | 2023-02-05 03:40 | PM.OBDSVD ---
DS: Admitting Diagnosis Discharge Date 02/07/2023 Admitting Diagnosis 27 y.o. . Preeclampsia with severe features. IOL Hypothyroidism DS: Discharge Diagnosis Discharge Diagnosis (1) Pre-eclampsia in third trimester: Code(s): O14.93 - Unspecified pre-eclampsia, third trimester Status: Acute (2) Hypothyroidism: Code(s): E03.9 - Hypothyroidism, unspecified Status: Acute (3) (normal spontaneous vaginal delivery): Code(s): O80 - Encounter for full-term uncomplicated delivery Status: Acute OB - DS: Summary Hospital Course Hospital Course: Uncomplicated OB Procedures : NST, PIH Mgmt, Ultrasound and Other ( steroids for lung maturity) OB Procedures Intrapartum: Spontaneous Vag Delivery OB Procedures: : None Peripartum Data Infant Delivery Method: Natural Vaginal Laceration Description: Labial (bilateral) Episiotomy description: None complications: none Status at Discharge Functional status at discharge: independent ambulation Time Spent with Patient Time attestation: Total time spent providing and/or coordinating discharge services: Exam Narrative: Alert and oriented. Mood is pleasant and cooperative. Urinating without difficulty. Denies passing any large clots. Perineum with minimal edema. Fundus firm and below umbilicus. Const: General: cooperative, healthy appearing, no acute distress and alert Nutritional Appearance: average body habitus Orientation/consciousness: patient oriented x3 Limitations: no limitations Resp: Effort & Inspection: normal respiratory effort Auscultation: clear to auscultation bilaterally Cardio: Rate: regular rate GI: Inspection: normal to inspection Neuro: General: patient oriented x3 Extrem: General: normal to inspection Psych: Appearance: grossly normal Mental Status: mental status grossly normal Affect: normal affect Thought process: Normal thought process present DS: Data Data Completed and Pending Labs on day of discharge: Labs from last 24 hours 02/04/23 02/03/23 18:05 12:58 WBC 12.9 H RBC 3.76 L Hgb 10.3 L Hct 32.0 L MCV 85.1 MCH 27.4 MCHC 32.2 RDW 14.3 Plt Count 247 MPV 10.1 Immature Gran % (Auto) 1.7 H Neut % (Auto) 69.8 Lymph % (Auto) 20.5 [place] % (Auto) 6.5 Eos % (Auto) 1.2 Baso % (Auto) 0.3 Lymph # (Auto) 2.63 [place] # (Auto) 0.8 H Eos # (Auto) 0.2 Baso # (Auto) 0.0 Abs Immat Gran (auto) 0.22 H Absolute Neuts (auto) 9.0 H Absolute Nucleated RBC 0.0 Nucleated RBC % 0.0 Sodium 135 L Potassium 3.8 Chloride 110 H Carbon Dioxide 19 L Anion Gap 6 L BUN 8 Creatinine 0.40 L Estim Creat Clear Calc 188 Estimated GFR > 60 Glucose 96 Calcium 8.6 Total Bilirubin 0.2 AST 19 ALT 17 Alkaline Phosphatase 178 H Total Protein 7.0 Albumin 3.5 U Random Total Protein 20 Ur 24 Hour Volume 3200 Urine Creatinine 45.8 Creatinine Clearance 179.3 H U Protein 24 Hr Presump Cancelled Ur Total Protein 24 Hr 640 H RPR Pending Blood Type O Positive Antibody Screen Negative Discharge Plan Discharge Attending physician on discharge: hCanelle Avilez Discharging Clinician: Marissa Larson Anticipated Discharge Date/Time: 02/07/23 15:00 Patient Disposition: Home, Self-Care Activity: may shower Diet: as tolerated Discharge Instructions: Continue taking your vitamin and any other supplements as previously directed (Examples: Iron, Vitamin D). You may take Tylenol 1000mg over the counter every 6 hours as needed for pain. Do not exceed 4000mg of Tylenol daily. You may continue using tucks pads and dermoplast spray if needed for a few more days. Patient Instructions: Antibiotic Form Stand Alone Forms: General Discharge Information Follow-up/Referrals: Marissa Larson, ALLA [Certified Nurse [employer] Sales Associate] - (BP check in office in one week 6
[2023-02-05] MEDS: OXYTOCIN 30 UNITS/NS 500 ML 30 UNITS/500 ML BAG 125 UNITS IV CONT (03:42)
[2023-02-05] MEDS: MAGNESIUM SULF 20GM/WATER500ML 500 ML 50 MG IV CONT ×2 (05:24→16:04)
[2023-02-05] MEDS: DOCUSATE SODIUM 100 MG CAPSULE PO ×2 (08:11→16:20)
[2023-02-05] MEDS: MULTIVIT/MIN/PREN/FOL AC/IRON TABLET 1 TAB PO (08:11)
[2023-02-05] MEDS: IBUPROFEN 600 MG TABLET PO ×3 (08:11→23:42)
[2023-02-05] MEDS: LEVOTHYROXINE SODIUM 25 MCG TABLET PO (08:12)
--- NOTE | 2023-02-05 11:14 | OBPPTRN ---
0649-Patient transferred to post room #283 via wheelchair. Support person present. Oriented to unit, room, information board, rooming in, admission packet and security measures. Patient verbalizes understanding.
[2023-02-05] MEDS: FERROUS SULFATE 324 MG TABLET PO (11:32)
[2023-02-05] MEDS: LACTATED RINGERS 1,000 ML 125 ML IV CONT (14:07)
[2023-02-05 15:14] LABS: Rapid Plasma Reagin Non-Reactive (NonReactive)
[2023-02-05] MEDS: CALCIUM CARBONATE (TUMS) 500 MG (200 MG ELEMENTAL) PO (19:12)
[2023-02-06] VITALS (8 sets, daily range): BP systolic 105–134; BP diastolic 67–86; PULSE 79–95; RESP 16–18; TEMP 36.3–37.2; O2SAT 97–100
[2023-02-06 05:22] LABS: Hematocrit 27.3 % (37.0-47.0); Hemoglobin 8.4 g/dL (12.0-15.0)
--- NOTE | 2023-02-06 07:12 | P.PNOB_ITS ---
OB - PN: Subj Subjective Date/time seen: 02/06/23 0655 Patient comments: no complaints [place] baby status: bottle feeding well and other (difficulty maintaining blood glucose. ) [place] feeding status: exclusively bottle feeding Narrative: PPD 1 from . States all visual changes have resolved. ARREDONDO has resolved. OB - PN: Obj Data Labs 02/06/23 04:58 02/04/23 18:05 Labs: Laboratory Results - last 24 hr 02/04/23 02/06/23 18:05 04:58 Hgb 8.4 L Hct 27.3 L RPR Non-reactive OB - PN A/P Plan day: 1 Plan: routine care Time Spent With Patient Time: Total time spent is greater than 50% in coordination of care (as documented) at patient's floor/unit and/or counseling patient: Exam Narrative: Alert and oriented. Mood is pleasant and cooperative. Urinating without difficulty. Denies passing any large clots. Perineum with minimal edema. Fundus firm and below umbilicus. Const: General: cooperative, healthy appearing, no acute distress and alert Orientation/consciousness: patient oriented x3 Limitations: no limitations Resp: Effort & Inspection: normal respiratory effort Auscultation: clear to auscultation bilaterally Cardio: Rate: regular rate GI: Inspection: normal to inspection Neuro: General: patient oriented x3 Extrem: General: normal to inspection Psych: Appearance: grossly normal Mental Status: mental status grossly normal Affect: normal affect Thought process: Normal thought process present
--- NOTE | 2023-02-06 07:53 | WPDANLDPN2 ---
Anes-Prog Note L&D Date/Time: 02/06/23 07:53 Neuro status: Neuro function grossly intact. Vital Signs: Last Vital Signs Temp 36.5 C 02/06/23 05:00 Pulse 81 02/06/23 05:00 Resp 16 02/06/23 05:00 BP 116/73 02/06/23 05:00 Pulse Ox 100 02/06/23 05:00 O2 Del Method Room Air 02/06/23 05:00 Pain score (VAS): 0 I/O: Intake & Output 02/05/23 02/05/23 02/06/23 15:59 23:59 07:59 Intake Total 7409 775 2204 Output Total 2000 700 1400 Balance -0521 797 8202 Patient feedback: Patient satisfied with anesthetic care.
[2023-02-06] MEDS: LEVOTHYROXINE SODIUM 25 MCG TABLET PO (09:15)
[2023-02-06] MEDS: MULTIVIT/MIN/PREN/FOL AC/IRON TABLET 1 TAB PO (09:15)
[2023-02-06] MEDS: DOCUSATE SODIUM 100 MG CAPSULE PO (09:15)
[2023-02-06] MEDS: IBUPROFEN 600 MG TABLET PO ×2 (09:17→19:17)
[2023-02-06] MEDS: FERROUS SULFATE 324 MG TABLET PO (12:12)
[2023-02-06] MEDS: CALCIUM CARBONATE (TUMS) 500 MG (200 MG ELEMENTAL) PO (19:17)
[2023-02-07 02:30] VITALS: BP 106/69; PULSE 65; RESP 16; TEMP 36.5; O2SAT 94
[2023-02-07] MEDS: ACETAMINOPHEN 325 MG TABLET 650 MG PO ×2 (02:33→09:15)
[2023-02-07] MEDS: IBUPROFEN 600 MG TABLET PO ×2 (02:33→09:14)
[2023-02-07 07:30] VITALS: BP 128/83; PULSE 82; RESP 18; TEMP 36.8; O2SAT 99
[2023-02-07] MEDS: LEVOTHYROXINE SODIUM 25 MCG TABLET PO (09:14)
[2023-02-07] MEDS: DOCUSATE SODIUM 100 MG CAPSULE PO (09:14)
[2023-02-07] MEDS: MULTIVIT/MIN/PREN/FOL AC/IRON TABLET 1 TAB PO (09:14)
--- NOTE | 2023-02-07 11:36 | PM.OBPNVD ---
OB - PN: Subj Subjective Date/time seen: 02/07/23 11:36 Interval history: Doing well. Ambulating, passing urine and flatus without difficulty. Having trace edema to right lower extremity. No redness. States getting higher calorie formula. Anticipating discharge home this evening. Patient comments: no complaints and pain well controlled baby status: doing well feeding status: exclusively bottle feeding OB - PN: Obj Data Labs 02/06/23 04:58 02/04/23 18:05 OB - PN A/P Plan day: 2 Plan: discharge home Comments: Plan BP check in the office in one week. Time Spent With Patient Time: Total time spent is greater than 50% in coordination of care (as documented) at patient's floor/unit and/or counseling patient: Review of Systems Review of Systems: Denies ARREDONDO, visual changes, RUQ pain. All systems reviewed & are unremarkable except as noted in HPI and below Exam Narrative: Alert and oriented. Mood is pleasant and cooperative. Urinating without difficulty. Denies passing any large clots. Perineum with minimal edema. Fundus firm and below umbilicus. Const: General: cooperative, healthy appearing, no acute distress and alert Orientation/consciousness: patient oriented x3 Limitations: no limitations Resp: Effort & Inspection: normal respiratory effort Auscultation: clear to auscultation bilaterally Cardio: Rate: regular rate GI: Inspection: normal to inspection Neuro: General: patient oriented x3 Extrem: General: normal to inspection Psych: Appearance: grossly normal Mental Status: mental status grossly normal Affect: normal affect Thought process: Normal thought process present
[2023-02-07 13:06] VITALS: BP 136/80; PULSE 86; RESP 16
[2023-02-07] MEDS: FERROUS SULFATE 324 MG TABLET PO (14:20)
== END 2023-02-07 17:15 | disposition home or self-care (01) | DRG 560 ==
LOC: ANHOBOP 14:32 → ANHLDR 02-04 17:55 → ANHOBPP 02-04 17:55 → ANHLDR 02-05 03:45 → ANHOB2 02-05 06:53
PROVIDERS: Advanced Practice Midwife; Admitting Provider Obstetrics & Gynecology Gynecology; PCP Family Medicine; Visit Provider Obstetrics & Gynecology Gynecology
DX: O14.14 Severe pre-eclampsia complicating childbirth (principal); E03.9 Hypothyroidism, unspecified; O99.284 Endocrine, nutritional and metabolic diseases complicating childbirth; Z37.0 Single live birth; Z3A.36 36 weeks gestation of pregnancy; O69.81X0 Labor and delivery complicated by cord around neck, without compression, not applicable or unspecified; O70.0 First degree perineal laceration during delivery
CPT/HCPCS: 36415; 59025; 76816; 80053; 81001; 81050; 82570; 82575; 82948; 84112; 84156; 84550; 85014; 85018; 85025; 86592; 86850; 86900; 86901; 87086; 87088; 88307; A9270; J2590; J2795; J3475; J7120

== ENCOUNTER 2023-02-08 22:48 | Inpatient (IN) | payer OTHER, SELFPAY ==
--- NOTE | ~2023-02-08 | US_ITS ---
EXAMINATION: US pelvic complete DATE: 02/09/2023 08:28 INDICATION: Low abdominal pain. Fever. Recent vaginal delivery. TECHNIQUE: Multiple transabdominal sonographic images of the pelvis were obtained. COMPARISON: None. FINDINGS: The uterus measures 17.6 x 7.5 x 13.7 cm. There is no free fluid in the pelvis. The endometrial compl ex measures 2.1 cm in thickness without significant internal vascular flow. The right ovary measures 2.9 x 3.0 x 2.1 cm. The left ovary measures 1.9 x 3.0 x 2.2 cm. There is normal vascular flow in the ovaries. IMPRESSION: 1. Thickened endometrial complex suspicious for retained products of conception. Reviewed, dictated and finalized at location A. IMPRESSION: 1. Thickened endometrial complex suspicious for retained products of conception .
[2023-02-08 23:00] VITALS: BP 120/83; PULSE 103; RESP 14; TEMP 38.1; O2SAT 99
--- NOTE | 2023-02-08 23:12 | OBPPTRN ---
02/08/2023 at 2248 Patient transferred by ambulance from [facility] to [facility] post room #287 on stretcher. Patient complaining of lower abdominal pain and a low grade temp. Oriented to unit, room, information board, and plan of care. Assessment done. Orders received from Dr. García. Patient verbalizes understanding.
[2023-02-08 23:34] VITALS: BMI 35.7
[2023-02-08] MEDS: HYDROcodone/acetaminophen (*CRX) 5-325 MG TABLET 1 TAB PO (23:46)
--- NOTE | 2023-02-08 23:49 | OBPPTRN ---
Patient transferred to post room #287 via EMS. Oriented to unit, room, information board, admission packet and security measures. Patient verbalizes understanding.
[2023-02-09] VITALS (7 sets, daily range): BP systolic 115–134; BP diastolic 74–90; PULSE 84–104; RESP 16–18; TEMP 36.6–39.3; O2SAT 98–100
[2023-02-09] MEDS: CLINDAMYCIN 900 MG/D5W 50 ML 900 MG/50 ML PIGGYBACK 50 MG IVPB ×4 (02:40→21:01)
[2023-02-09] MEDS: LACTATED RINGERS 1,000 ML 125 ML IV CONT (02:40)
[2023-02-09] MEDS: HYDROcodone/acetaminophen (*CRX) 5-325 MG TABLET 1 TAB PO ×3 (07:49→16:05)
--- NOTE | 2023-02-09 07:58 | PC.NURSE ---
Patient to ultrasound via wheelchair.
--- NOTE | 2023-02-09 08:25 | PC.NURSE ---
Patient returned from ultrasound via wheelchair.
[2023-02-09 08:46] LABS: Basophils Percent Auto 0.4 % (0.2-1.2); Eosinophils Percent Auto 0.2 % (0-4.4); Hematocrit 28.9 % (37.0-47.0); Hemoglobin 9.4 g/dL (12.0-15.0); Immature Granulocyte Absolute 0.29 K/mm3 (0.00-0.031); Immature Granulocyte Percent A 2.7 % (0-0.5); Lymphocytes Absolute Auto 1.27 K/mm3 (0.9-3.2); Lymphocytes Percent Auto 11.6 % (18.3-44.2); Mean Corpuscular HGB Conc 32.5 g/dl (32-36); Mean Corpuscular Hemoglobin 27.6 pg (26-34); Mean Platelet Volume 9.3 fl (7.4-10.4); Monocytes Absolute Auto 0.6 K/mm3 (0.1-0.6); Monocytes Percent Auto 5.5 % (2.6-8.5); Neutrophils Absolute Auto 8.7 K/mm3 (1.3-6.7); Neutrophils Percent Auto 79.6 % (45.5-73.1); Platelet Count Result 231 k/mm3 (150-375); Red Cell Distribution Width 15.1 % (11.5-14.5); White Blood Count 10.9 K/mm3 (4.5-10.0)
[2023-02-09] MEDS: IBUPROFEN 600 MG TABLET PO ×2 (09:14→16:05)
--- NOTE | 2023-02-09 09:41 | PM.OBPNVD ---
OB - PN: Subj Subjective Date/time seen: 02/09/23 09:41 Interval history: The patient is day 4. The patient called the on-call physician with a temperature and increasing pain and was instructed to go to the emergency room. Patient to which field emergency room. Patient had a temperature there of 100.8 and a white count 11.4 with uterine tenderness. She was transferred to [place] for further management. Patient was given gentamicin 24hour dose at [place]. She was started on clindamycin once she arrived to [facility]. Patient currently complains of continued abdominal pain as well as a headache. Patient bleeding has been decreasing each day. Patient is bottle feeding and her milk has been coming in over the past 2 days. She does complain of breast pain when asked. No GI complaints or urinary symptoms. [place] feeding status: exclusively bottle feeding OB - PN: Obj Data Labs 02/09/23 08:41 Labs: Laboratory Results - last 24 hr 02/09/23 08:41 WBC 10.9 H RBC 3.40 L Hgb 9.4 L Hct 28.9 L MCV 85.0 MCH 27.6 MCHC 32.5 RDW 15.1 H Plt Count 231 MPV 9.3 Immature Gran % (Auto) 2.7 H Neut % (Auto) 79.6 H Lymph % (Auto) 11.6 L [place] % (Auto) 5.5 Eos % (Auto) 0.2 Baso % (Auto) 0.4 Lymph # (Auto) 1.27 [place] # (Auto) 0.6 Eos # (Auto) 0.0 Baso # (Auto) 0.0 Abs Immat Gran (auto) 0.29 H Absolute Neuts (auto) 8.7 H Absolute Nucleated RBC 0.0 Nucleated RBC % 0.0 Imaging Radiologist's impression: Impressions Pelvis Ultrasound 02/09/23 08:38 IMPRESSION: 1. Thickened endometrial complex suspicious for retained products of conception. OB - PN A/P Assessment and Plan (1) Endometritis: Code(s): N71.9 - Inflammatory disease of uterus, unspecified Status: Acute Assessment and Plan: Will continue gentamicin and clindamycin and add ampicillin. White count is decreased from last evening to 10.4. Patient remains febrile and will be observed on antibiotics. Pelvic ultrasound reveals a homogeneous endometrium thickened consistent with day 4 with no discrete masses. The uterus is mildly tender and will continue [place] and ibuprofen as needed for pain and fever control. Will add a tight bra and ice packs for developing breast engorgement as the patient is bottle-feeding. This maybe complicating the febrile picture. (2) Pre-eclampsia in third trimester: Code(s): O14.93 - Unspecified pre-eclampsia, third trimester Status: Acute Assessment and Plan: blood pressures have been normal since readmission Plan day: 4 Time Spent With Patient Time: Total time spent is greater than 50% in coordination of care (as documented) at patient's floor/unit and/or counseling patient: Exam Const: General: alert, awake, anxious and tired appearing Chest: Breast/axilla palpation: normal palpation of the breasts ( No masses; moderately firm) Resp: Effort & Inspection: normal respiratory effort GI: GI Palp: Yes Soft to palpation and No Tenderness to palpation present (GI) : Bimanual exam- vagina & uterus: enlarged ( approximately 16 week size mild tenderness to palpation)
[2023-02-09] MEDS: AMPICILLIN 2 GM/NS 100 ML 2 GM/100 ML BAG IVPB ×3 (10:03→22:13)
[2023-02-09 10:36] LABS: Estimated CRCL calculation 112 ml/min; Estimated Glomerular Filt Rate > 60
--- NOTE | 2023-02-09 11:46 | PCCCNOTE ---
Care Coordination met with pt. this morning to discuss discharge planning. Pt. delivered baby last week and returned home with baby and her six year old daughter. Pt. has limited assistance with childcare. FOB does not live in the home. Pt. will require a couple more days of IV abx, she is anxious about length of treatment since she will not have childcare and states she wont be able to stay. CC discussed outpt. infusion at [facility] with pt. but expressed concern since pt. would need an insurance auth and tomorrow is a holiday. During assessment, baby's nurse informed CC and pt. that baby would be readmitted due to jaundice. With baby being admitted, pt. will stay and complete her IV abx without concern. She confirms she has early childhood assistant for her daughter. No further need for CC services.
[2023-02-09] MEDS: GENTAMICIN SULFATE INJ 340 MG in DEXTROSE 5% 100 ML 100 MG IVPB (12:02)
[2023-02-09] MEDS: LACTATED RINGERS 1,000 ML 100 ML IV CONT (14:07)
[2023-02-09 22:53] LABS: Gentamicin Random 1.1 ug/mL (5.0-12.0)
[2023-02-10] MEDS: CLINDAMYCIN 900 MG/D5W 50 ML 900 MG/50 ML PIGGYBACK 50 MG IVPB ×2 (02:58→08:58)
[2023-02-10] MEDS: HYDROcodone/acetaminophen (*CRX) 5-325 MG TABLET 1 TAB PO (03:02)
[2023-02-10 04:00] VITALS: BP 119/79; PULSE 77; RESP 16; TEMP 36.8; O2SAT 98
[2023-02-10] MEDS: LACTATED RINGERS 1,000 ML 100 ML IV CONT (04:15)
[2023-02-10] MEDS: AMPICILLIN 2 GM/NS 100 ML 2 GM/100 ML BAG IVPB ×2 (04:16→09:57)
[2023-02-10 05:19] LABS: Basophils Absolute Auto 0.1 K/mm3 (0.0-0.1); Basophils Percent Auto 0.7 % (0.2-1.2); Eosinophils Absolute Auto 0.2 K/mm3 (0-0.3); Eosinophils Percent Auto 1.8 % (0-4.4); Hematocrit 27.3 % (37.0-47.0); Hemoglobin 8.7 g/dL (12.0-15.0); Immature Granulocyte Absolute 0.22 K/mm3 (0.00-0.031); Immature Granulocyte Percent A 2.7 % (0-0.5); Lymphocytes Absolute Auto 1.87 K/mm3 (0.9-3.2); Lymphocytes Percent Auto 22.7 % (18.3-44.2); Mean Corpuscular HGB Conc 31.9 g/dl (32-36); Mean Corpuscular Hemoglobin 27.4 pg (26-34); Mean Corpuscular Volume 85.8 fl (80-100); Mean Platelet Volume 9.8 fl (7.4-10.4); Monocytes Absolute Auto 0.9 K/mm3 (0.1-0.6); Monocytes Percent Auto 10.3 % (2.6-8.5); Neutrophils Absolute Auto 5.1 K/mm3 (1.3-6.7); Neutrophils Percent Auto 61.8 % (45.5-73.1); Platelet Count Result 250 k/mm3 (150-375); Red Blood Count 3.18 M/mm3 (4.2-5.4); White Blood Count 8.2 K/mm3 (4.5-10.0)
[2023-02-10] MEDS: LEVOTHYROXINE SODIUM 25 MCG TABLET PO (06:44)
[2023-02-10 07:45] VITALS: BP 134/87; PULSE 72; RESP 16; TEMP 37.1; O2SAT 100
--- NOTE | 2023-02-10 08:22 | PM.OBDSVD ---
DS: Admitting Diagnosis Discharge Date 02/10/23 Admitting Diagnosis endometritis DS: Discharge Diagnosis Discharge Diagnosis (1) Endometritis: Code(s): N71.9 - Inflammatory disease of uterus, unspecified Status: Acute OB - DS: Summary OB Procedures : None OB Procedures Intrapartum: Other OB Procedures: : Other ( endometritis ) Peripartum Data complications: pelvic infection Status at Discharge Functional status at discharge: independent ambulation Overall status at discharge: patient is back to baseline Time Spent with Patient Time attestation: Total time spent providing and/or coordinating discharge services: Time spent: Less than 30 minutes Exam Const: General: cooperative, comfortable and no acute distress Resp: Effort & Inspection: normal respiratory effort and able to speak in complete sentences Cardio: Rate: regular rate Rhythm: regular rhythm GI: GI Palp: No abdominal tenderness, Yes Soft to palpation and No Tenderness to palpation present (GI) DS: Data Data Completed and Pending Labs on day of discharge: Labs from last 24 hours 02/10/23 02/09/23 02/09/23 04:29 22:11 10:13 WBC 8.2 RBC 3.18 L Hgb 8.7 L Hct 27.3 L MCV 85.8 MCH 27.4 MCHC 31.9 L RDW 15.0 H Plt Count 250 MPV 9.8 Immature Gran % (Auto) 2.7 H Neut % (Auto) 61.8 Lymph % (Auto) 22.7 [place] % (Auto) 10.3 H Eos % (Auto) 1.8 Baso % (Auto) 0.7 Lymph # (Auto) 1.87 [place] # (Auto) 0.9 H Eos # (Auto) 0.2 Baso # (Auto) 0.1 Abs Immat Gran (auto) 0.22 H Absolute Neuts (auto) 5.1 Absolute Nucleated RBC 0.0 Nucleated RBC % 0.0 Creatinine 0.70 Estim Creat Clear Calc 112 Estimated GFR > 60 Random Gentamicin 1.1 L 02/09/23 08:41 WBC 10.9 H RBC 3.40 L Hgb 9.4 L Hct 28.9 L MCV 85.0 MCH 27.6 MCHC 32.5 RDW 15.1 H Plt Count 231 MPV 9.3 Immature Gran % (Auto) 2.7 H Neut % (Auto) 79.6 H Lymph % (Auto) 11.6 L [place] % (Auto) 5.5 Eos % (Auto) 0.2 Baso % (Auto) 0.4 Lymph # (Auto) 1.27 [place] # (Auto) 0.6 Eos # (Auto) 0.0 Baso # (Auto) 0.0 Abs Immat Gran (auto) 0.29 H Absolute Neuts (auto) 8.7 H Absolute Nucleated RBC 0.0 Nucleated RBC % 0.0 Creatinine Estim Creat Clear Calc Estimated GFR Random Gentamicin Discharge Plan Discharge Consulting providers: Chanelle Avilez Discharging Clinician: Kayden García Patient Disposition: Home, Self-Care Activity: as tolerated and pelvic rest Diet: regular Patient Instructions: Antibiotic Form, Endometritis (DC) Stand Alone Forms: General Discharge Information Follow-up/Referrals: Chanelle Avilez MD [Physician] - Discharge Medications: No Action levothyroxine 25 mcg tablet 25 mcg PO DAILY ferrous sulfate 325 mg (65 mg iron) Tablet 325 mg PO DAILY ergocalciferol (vitamin D2) 1,250 mcg (50,000 unit) capsule 50,000 unit PO 2XW Rx Instructions: Takes every Thursday and Thursday PNV cmb#[id number]-ferrous fumarate-FA [] 28 mg iron- 800 mcg Tablet 1 tablet PO DAILY ibuprofen 600 mg tablet 600 mg PO Q6H PRN (Reason: pain) Qty: 30 0RF Date of admission: 02/09/23 10:21 Primary Care Provider: Marissa Rosas Admitting Provider: Kayden García Attending physician on admission: Kayden García Condition: Stable
[2023-02-10] MEDS: DOCUSATE SODIUM 100 MG CAPSULE (09:57)
[2023-02-10] MEDS: FERROUS SULFATE 324 MG TABLET PO (09:57)
[2023-02-10] MEDS: GENTAMICIN SULFATE INJ 340 MG in DEXTROSE 5% 100 ML 100 MG IVPB (11:59)
== END 2023-02-10 13:42 | disposition home or self-care (01) | DRG 561 ==
PROVIDERS: Admitting Provider Obstetrics & Gynecology Gynecology; PCP Family Medicine; Visit Provider Student in an Organized Health Care Education/Training Program
DX: O86.12 Endometritis following delivery (principal)
CPT/HCPCS: 36415; 76856; 80170; 82565; 85025; A9270; J0290; J1580; J7120